=== PATIENT | female | born 1990 | race Caucasian/White ===

== ENCOUNTER 2017-10-07 06:00 | Inpatient (IN) ==
--- OUTSIDE RECORDS SUMMARY | 2017-10-07 06:19 | External Medical Summary | Continuity of Care Document ---
:1990 Author Organization [facility] Address [address] [place] [address] [phone] Phone Care Team Providers Name Role Phone Faudere DO, Crystal Unavailable Unavailable Allergies, Adverse Reactions, Alerts Substance Reaction Severity Status sulfamethoxazole Unknown Active trimethoprim Unknown Active Medications Medication Instructions Dosage Effective Dates Status Comments (start - stop) RANITIDINE HCL take 1 capsule by - Active (unknown strength) oral route every day at bedtime GAVISCON (unknown - Active strength) TUMS (unknown - Active strength) ferrous sulfate 325 mg take 1 tablet by oral 325 MG - Active (65 mg iron) tablet route every day ORAL TABLET - Active Tylenol Extra Strength take 2 tablet by oral 1000 MG - Active 500 mg tablet route every 6 hours as needed as needed polyethylene glycol take 1 packet by oral 17 G - Active 3350 17 gram oral route every day powder packet mixed with 8 oz. water, juice, soda, coffee or tea Problems Condition Effective Dates (start - stop) Clinical Status Encounter for suprvsn of normal - , third trimester 32 weeks gestation of - Encounter for suprvsn of normal - , first trimester 13 weeks gestation of - Encounter for suprvsn of normal - , third trimester 30 weeks gestation of - Encounter for suprvsn of normal - , third trimester 34 weeks gestation of - Partial Placenta Previa Nos Or W/out - Hemorrhage, Second Trimester Encounter for suprvsn of normal - , second trimester 25 weeks gestation of - Partial Placenta Previa Nos Or W/out - Hemorrhage, Third Trimester 30 weeks gestation of - Encounter for suprvsn of normal - , second trimester 21 weeks gestation of - Encounter for suprvsn of normal - , second trimester 21 weeks gestation of - Encounter for suprvsn of normal - , second trimester 17 weeks gestation of - Procedures Procedure Date 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 Tk SANTORO, , third 8 700 [address] [email or web address] weeks Medical 1522, gestation of [facility] Bobby Guajardo PA, 120, [id number], Rosa, [place], tel:[phone] [facility] , [place]. tel: [phone] Francia Rosa Encounter for Dec-2 Hailee In Womens suprvsn of normal 0-201 Prerna. Health MAUDE, , third 7 700 [address] [email or web address] weeks Medical 1522, gestation of [facility] Bobby Guajardo, 120, [id number], [facility] [place], tel: [phone] , [place]. tel: [phone] Francia Rosa Encounter for Dec-0 Hailee Referring In Womens suprvsn of normal 4-201 Prerna. Provider: Tk SANTORO, , third 7 700 Prerna [address] [email or web address] weeks Medical Hailee L, 1522, gestation of [address] Bobby Guajardo, 120, [place] [id number], [place] [address], [place], tel: [phone] [place] [address] , . [id number]. tel: tel: [phone] Francia Rosa Partial Placenta Dec-0 Hailee In Womens Ultrasound Previa Nos Or 4-201 Prerna. Health PA, W/out Hemorrhage, 7 700 PO Box Third [id number] Medical 1522, weeks gestation [facility], of Bobby Guajardo, 120, [id number], [place], [place], tel:[phone] , [place]. tel: [phone] [facility] [place] Nov-0 Hailee In Womens 3-201 Prerna. Health PA, 7 700 PO Box Medical 1522, [facility], Bobby Guajardo, 120, , [place], [place], tel:[phone] , [place]. tel: [phone] [facility] [place] Partial Placenta Nov-0 Hailee In Womens Previa Nos Or 2-201 Prerna. Health MAUDE, W/out Hemorrhage, 7 700 PO Box Second Medical 1522, TrimesterEncounte [facility], r for suprvsn of Bobby Guajardo, normal , 120, , second [place], [email or web address] weeks [place], tel:+ gestation [phone] , [place]. tel: [phone] Francia Rosa Encounter for Oct-0 Hailee In Womens suprvsn of normal 5-201 Prerna. Health PA, , second 7 700 [address] Box [email or web address] weeks Medical 1522, gestation of [facility] Bobby Guajardo, 120, , [place], [place], tel:[phone] , [place]. tel: [phone] Francia Rosa Encounter for Oct-0 Hailee In Womens Ultrasound suprvsn of normal 5-201 Prerna. Health PA, , second 7 700 [address] Box [email or web address] weeks Medical 1522, gestation of [facility] Bobby Guajardo, 120, , [place], [place], tel:[phone] , [place]. tel:[phone] Francia Rosa Encounter for Sep-0 Hailee In Womens suprvsn of normal 6-201 Prerna. Health PA, , second 7 700 [address] Box [email or web address] weeks Medical 1522, gestation of [facility], Bobby Guajardo, 120, [id number], [place], [place], tel:[phone] , [place]. tel: [phone] Francia Rosa Encounter for Hailee In Womens suprvsn of normal 7-201 Prerna. [facility], , first 7 700 [address] [email or web address] weeks Medical 1522, gestation of [facility], Bobby Guajardo, 120, [id number], [place], [place], tel:[phone] , [place]. tel: [phone] Family History Family Member Diagnosis Age At Onset Maternal Grandfather Diabetes No family history of Venous Thrombosis Father Hypertension Paternal Grandfather Stroke No family history of Pulmonary Embolism Sister Thyroid Disorder Immunizations Vaccine Date Status Comments Rhophylac completed Source: New Immunization Record Payers Payer name Insurance type Covered alliance party ID Authorization(s) [facility] CI [id number] [facility] CI [id number] Social History Type Description Quantity Date Captured Alcohol Use Details No Caffeine Use Details Unknown Tobacco Use Status Unknown Smoking Status Never smoker Vital Signs Date / Height Weight BMI Pulse Blood Temperature Respiratory Body Head BMI Time: Rate Pressure Rate Surface Circumference percentile Area 178.70 29.7 lbs 3 mm[Hg] 4:50 kg/m PM eter (2) Chief Complaint And Reason For Visit Unknown Chief Complaint And Reason For Visit Reason For Referral Reason For Referral Unknown Plan Of Care Date Type Action Status Appointment Nickie Gamino BOOKED Future Order: Radiology Order Ultrasound, OB Limited ([id number]) Ordered Future Order: Radiology Order Complete OB Ultrasound > 14 Ordered Weeks ([id number]) Date Type Problem Goal Intervention Status Start Date Unknown. History Of Present Illness Encounter Date Complaint History Of Present Illness This patient has no known history of present illness Functional Status Encounter Date Functional Assessment Cognitive Assessment Unknown Medications Administered Medication Instructions Dosage Effective Dates (start - stop) Status Comments Drug Treatment Unknown Instructions Date Instruction Additional Information HIV and other routine tests risk factors identified by history anticipated course of care nutrition and weight gain counseling, special diet toxoplasmosis precautions (cats / raw meat) sexual activity exercise indications for ultrasound influenza vaccine environmental / work hazards travel use of any medications (including supplements, vitamins, herbs, OTC drugs) domestic violence seat belt use childbirth classes / hospital facilities hospital registration genetic testing new ob handbook Zika virus assessment & precautions
--- OUTSIDE RECORDS SUMMARY | 2017-10-07 06:19 | External Medical Summary | Continuity of Care Document ---
:1990 Author Organization [facility] Address [address] [place] [address] [phone] Phone Care Team Providers Name Role Phone Faudere DO, Crystal Unavailable Unavailable Allergies, Adverse Reactions, Alerts Substance Reaction Severity Status No Known Drug Allergies Unknown Active Medications Medication Instructions Dosage Effective Dates Status Comments (start - stop) ORAL - Active TABLET Tylenol Extra take 2 tablet by oral 1000 MG - Active Strength 500 mg route every 6 hours tablet as needed as needed Problems Condition Effective Dates (start - stop) Clinical Status Encounter for suprvsn of normal - , first trimester 13 weeks gestation of - Procedures Procedure Date Initial 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 Infct antign, chlamydia trac, ampl Neisseria Gonorrhoeae, Amplification Urine Culture OB Panel With An HIV Venpnctr fngr/heel/ear stick routne Cult, bactr, ident isolate, urine Results Test Name Date and Time Measure Units Reference Range Abnormal Flag Comments Panel Description: OBSTETRIC PANEL WHITE BLOOD CELL 13.3 Thousand/uL 3.8-10.8 H COUNT 15:55:00 RED BLOOD CELL 3.83 Million/uL 3.80-5.10 N COUNT 15:55:00 HEMOGLOBIN 12.0 g/dL 11.7-15.5 N 15:55:00 HEMATOCRIT 36.1 % 35.0-45.0 N 15:55:00 MCV 94.3 fL 80.0-100.0 N 15:55:00 MCH 31.3 pg 27.0-33.0 N 15:55:00 MCHC 33.2 g/dL 32.0-36.0 N 15:55:00 RDW 12.4 % 11.0-15.0 N 15:55:00 PLATELET COUNT 270 Thousand/uL 140-400 N 15:55:00 MPV 11.3 fL 7.5-12.5 N 15:55:00 ABSOLUTE 67473 cells/uL 6797-9444 H NEUTROPHILS 15:55:00 ABSOLUTE 2421 cells/uL 850-3900 N LYMPHOCYTES 15:55:00 ABSOLUTE 625 cells/uL 200-950 N MONOCYTES 15:55:00 ABSOLUTE 120 cells/uL 15-500 N EOSINOPHILS 15:55:00 ABSOLUTE 40 cells/uL 0-200 N BASOPHILS 15:55:00 NEUTROPHILS 75.9 % N 15:55:00 LYMPHOCYTES 18.2 % N 15:55:00 MONOCYTES 4.7 % N 15:55:00 EOSINOPHILS 0.9 % N 15:55:00 BASOPHILS 0.3 % N 15:55:00 ANTIBODY SCREEN, NO ANTIBODIES N RBC W/REFL ID, 15:55:00 DETECTED Reference range TITER AND AG No antibodies detected This assay is a screening test for the detection of red blood cell antibodies. The test is not to be used for pretransfusion screening or for the medical management of an alloimmunized . ABO GROUP B 15:55:00 RH TYPE RH (D) 15:55:00 NEGATIVE RPR (DX) W/REFL NON-REACTIVE NON-REACTIV N TITER AND 15:55:00 E CONFIRMATORY TESTING HEPATITIS B NON-REACTIVE NON-REACTIV N SURFACE ANTIGEN 15:55:00 E RUBELLA ANTIBODY 1.12 index N Index (IGG) 15:55:00 Interpretation ----- <0.90 Not consistent with Immunity 0.90-0.99 Equivocal > or=1.00 Consistent with Immunity The presence of rubella IgG antibody suggests immunization or past or current infection withrubella virus.Test performed at [facility] [place] [address]Spczlbr r: PEDRO JONES DO,MPH Panel Description: HIV 1/2 ANTIGEN/ANTIBODY,FOURTH GENERATION W/RFL HIV NON-REACTIVE NON-REACTIVE N HIV-1 antigen and HIV-1/HIV- 2 antibodies were AG/AB, 15:55:00 notdetected. There is no laboratory evidence of 4TH GEN HIVinfection. PLEASE NOTE: This information has been disclosed toyou from records whose confidentiality may beprotected by state law. If your state requires suchprotection, then the state law prohibits you frommaking any further disclosure of the informationwithout the specific written consent of the personto whom it pertains, or as otherwise permitted by law.A general authorization for the release of medical orother information is NOT sufficient for this purpose. For additional information please refer tohttp://education.[employer]/faq/ZJO785(This link is being provided for informational/educational purposes only.) The performance of this assay has not been clinicallyvalidated in patients less than 2 years old. Test performed at [facility] [id number] [facility] [address]Eggyhyzw: PEDRO JONES DO,MPH Panel Description: Bacteria identified in Urine by Culture CULTURE, URINE, 15:50:00 SEE NOTE A CULTURE, URINE, ROUTINE ROUTINE MICRO NUMBER: [id number] TEST STATUS: FINAL SPECIMEN SOURCE: URINE SPECIMEN QUALITY: ADEQUATE RESULT: 10,000-50,000 CFU/mL of Streptococcus viridans group May represent colonizers from external and internal genitalia. No further testing (including susceptibility) will be performed. COMMENT: Additional organism(s) less than 10,000 CFU/mL isolated. These organisms, commonly found on external and internal genitalia, are considered colonizers. No further testing performed.REPORT COMMENT:RTest performed at [facility] [id number] [facility] [place] [address]Cofujtzy: PEDRO JONES DO,MPH Panel Description: CHLAMYDIA/N. GONORRHOEAE RNA, TMA CHLAMYDIA NOT DETECTED NOT DETECTED N TRACHOMATIS RNA, 15:30:00 TMA NEISSERIA NOT DETECTED NOT DETECTED N GONORRHOEAE RNA, 15:30:00 TMA [id number] SEE NOTE This test was 15:30:00 performed using the APTIMA COMBO2 Assay([employer] The analytical performance characteristics of this assay, when used to test SurePath specimens havebeen determined by [employer]. Test performed at [facility] [id number] [place] [address]Ahvzvlsk: PEDRO JONES DO,MPH Panel Description: Pap Smear With HPV Reflex If ASCUS Document Advance Directives Directive Yes / No Effective Date File Name Unknown Encounters Encounter Practice Location Reason(s) Diagnoses Date Provider Care Team Description For Visit Members [facility] Encounter [facility] [place] Pre[place]. [place], PO Box of normal 700 1522, , [facility] , [id number], [place] [email or web address] Bobby 120, tel:[phone] weeks Rosa, 6790 gestation of [place], [id number], [place]. tel:[phone] Family History Family Member Diagnosis Age At Onset Maternal Grandfather Diabetes No family history of Venous Thrombosis Father Hypertension Paternal Grandfather Stroke No family history of Pulmonary Embolism Sister Thyroid Disorder Immunizations Vaccine Date Status Comments Unknown Payers Payer name Insurance type Covered constitution party ID Authorization(s) [facility] [id number] Social History Type Description Quantity Date Captured Alcohol Use Details No Caffeine Use Details combo 1 cup per day Tobacco Use Status Never smoked tobacco Smoking Status Never smoker Non-Smoking Tobacco Use : No Details Available : No Details Available Details Vital Signs Date / Height Weight BMI Pulse Blood Temperature Respiratory Body Head BMI Time: Rate Pressure Rate Surface Circumference percentile Area 151.10 25.1 105/69 lbs 4 mm[Hg] 3:35 kg/m PM eter (2) 151.10 25.1 lbs 4 3:12 kg/m PM eter (2) 151.10 25.1 lbs 4 mm[Hg] 3:13 kg/m PM eter (2) Chief Complaint And Reason For Visit Unknown Chief Complaint And Reason For Visit Reason For Referral Reason For Referral Unknown Plan Of Care Date Type Action Status Appointment Stevenson, Nickie BOOKED Date Type Problem Goal Intervention Status Start [...]
--- OUTSIDE RECORDS SUMMARY | 2017-10-07 06:19 | External Medical Summary | Continuity of Care Document ---
:1990 Author Organization [facility] Address [address] [place] [address] [phone] Phone Care Team Providers Name Role Phone Ekaterina RUIZ, Crystal Unavailable Unavailable Allergies, Adverse Reactions, Alerts [...] third trimester 34 weeks gestation of - Encounter for suprvsn of normal - , first trimester 13 weeks gestation of - Encounter for suprvsn of normal - , third trimester 30 weeks gestation of - Partial Placenta Previa [...] second trimester 17 weeks gestation of - Encounter for suprvsn of normal - , third trimester 36 weeks gestation of - Encounter for suprvsn of normal - , third trimester 32 weeks gestation of - Procedures Procedure Date OB Visit No Charge Results Test Name Date and Time Measure Units Reference Range Abnormal Flag Comments Unknown Advance Directives Directive Yes / No Effective Date File Name Unknown Encounters Encounter Practice Location Reason(s) Diagnoses Date Provider Care Team Description For Visit Members Francia Rosa Encounter for Sep- Hailee Referring In Womens suprvsn of normal 7-201 Prerna. Provider: Health PA, , third 8 700 Prerna [address] [email or web address] weeks Medical Hailee L, 1522, gestation of [address] Bobby Guajardo [place], 120, [place] , [place] [address], [place], tel:[phone] [place], [address] , . [id number]. tel: tel: [phone] Francia Rosa Encounter for Derik-0 Hailee In Womens suprvsn of normal 3-201 Prerna. Health PA, , third 8 700 [address] Box [email or web address] weeks Medical 1522, gestation of [facility] Bobby Guajardo, 120, [id number], [place], tel:[phone] , . tel: [phone] Francia Rosa Encounter for Dec-2 Hailee In Womens suprvsn of normal 0-201 Prerna. Health PA, , third 7 700 PO Box [email or web address] weeks Medical 1522, gestation of [facility] Bobby Guajardo, 120, , [place], [place], tel:[phone] , [place]. tel: [phone] Associates [place] Encounter for Dec-0 Hailee Referring In Womens suprvsn of normal 4-201 Prerna. Provider: Health MAUDE, , third 7 700 Prerna PO Box [email or web address] weeks Medical Hailee L, 1522, gestation of [address], Bobby Guajardo [place], 120, [place] , [place] [facility] 120, [place], [place], tel:[phone] [place], , [place]. [id number]. tel: tel: [phone] [facility] [place] Partial Placenta Dec-0 Hailee In Womens Ultrasound Previa Nos Or 4-201 Prerna. Health MAUDE, W/out Hemorrhage, 7 700 PO Box Third [id number] Medical 1522, weeks gestation [facility], Bobby Guajardo, 120, , [place], tel:[phone] , [place]. tel: [phone] Associates [place] Nov-0 Hailee In Womens 3-201 Prerna. Health MAUDE, 7 700 PO Box Medical 1522, [facility], Bobby Guajardo, 120, , [place], [place], tel:[phone] , [place]. tel: [phone] [facility] [place] Partial Placenta Nov-0 Hailee In Womens Previa Nos Or 2-201 Prerna. Health MAUDE, W/out Hemorrhage, 7 700 PO Box Second Medical 1522, TrimesterEncounte [facility], for suprvsn of Bobby Guajardo, normal , 120, , janeth Rosa [email or web address] weeks [place], tel: gestation of [phone] , [place]. tel: [phone] Associates [place] Encounter for Oct-0 Hailee In Womens suprvsn of normal 5-201 Prerna. Health MAUDE, , second 7 700 PO Box [email or web address] weeks Medical 1522, gestation of [facility], Bobby Guajardo, 120, , [place], tel:[phone] , [place]. tel: [phone] Francia Rosa Encounter for Oct-0 Hailee In Womens Ultrasound suprvsn of normal 5-201 Prerna. Health PA, , second 7 700 PO Box [email or web address] weeks Medical 1522, gestation of [facility], Bobby Guajardo, 120, [id number], [facility] [place], tel:[phone] , [place]. tel: [phone] Francia Rosa Encounter for Sep-0 Hailee In Womens suprvsn of normal 6-201 Prerna. Health PA, , second 7 700 PO Box [email or web address] weeks Medical 1522, gestation of [facility], Bobby Guajardo, 120, [id number], [facility] [place], tel:[phone] , [place]. tel: [phone] Francia Rosa Encounter for Aug-0 Hailee In Womens suprvsn of normal 7-201 Prerna. Health PA, , first 7 700 PO Box weeks Medical 1522, gestation of [facility], Bobby Guajardo, 120, [id number], [facility] [place], tel:[phone] , [place]. tel: [phone] Family History Family Member Diagnosis Age At Onset Maternal Grandfather Diabetes No family history of Venous Thrombosis Father Hypertension Paternal Grandfather Stroke No family history of Pulmonary Embolism Sister Thyroid Disorder Immunizations Vaccine Date Status Comments Tdap completed Source: New Immunization Record Rhophylac completed Source: New Immunization Record Payers Payer name Insurance type Covered libertarian ID Authorization(s) [facility] CI [id number] [facility] CI [id number] [facility] CI [id number] Social History Type Description Quantity Date Captured Alcohol Use Details No Caffeine Use Details Unknown Tobacco Use Status Unknown Smoking Status Never smoker Vital Signs Date / Height Weight BMI Pulse Blood Temperature Respiratory Body Head BMI Time: Rate Pressure Rate Surface Circumference percentile Area Unknown Chief Complaint And Reason For Visit Unknown Chief Complaint And Reason For Visit Reason For Referral Reason For Referral Unknown Plan Of Care Date Type Action Status Appointment Nickie Gamino BOOKED Future Order: Radiology Order Ultrasound, OB Limited ([id number]) Ordered Future Order: Radiology Order Complete OB Ultrasound > 14 Ordered Weeks ([id number]) Date Type Problem Goal Intervention Status Start [...]
--- OUTSIDE RECORDS SUMMARY | 2017-10-07 06:19 | External Medical Summary | Continuity of Care Document ---
:1990 Author Organization [facility] Address [address] [place] [phone] Phone Care Team Providers Name Role Phone Faudere DO, Crystal Unavailable Unavailable Allergies, Adverse Reactions, Alerts Substance Reaction Severity Status No Known Drug Allergies Unknown Active sulfamethoxazole Unknown Active trimethoprim Unknown Active Medications Medication Instructions Dosage Effective Dates Status Comments (start - stop) ferrous sulfate 325 mg take 1 tablet by oral 325 MG - Active (65 mg iron) tablet route every day polyethylene glycol take 1 packet by oral 17 G - Active 3350 17 gram oral route every day powder packet mixed with 8 oz. water, juice, soda, coffee or tea ORAL TABLET - Active Tylenol Extra Strength take 2 tablet by oral 1000 MG - Active 500 mg tablet route every 6 hours as needed as needed Problems Condition Effective Dates (start - stop) Clinical Status Encounter for suprvsn of normal - , first trimester 13 weeks gestation of - Partial Placenta Previa Nos Or W/out - Hemorrhage, Second Trimester Encounter for suprvsn of normal - , second trimester 25 weeks gestation of - Encounter for suprvsn of normal - , second trimester 21 weeks gestation of - Encounter for suprvsn of normal - , second trimester 21 weeks gestation of - Encounter for suprvsn of normal - , second trimester 17 weeks gestation of - Procedures Procedure Date Unknown Results Test Name Date and Time Measure Units Reference Range Abnormal Flag Comments Unknown Advance Directives Directive Yes / No Effective Date File Name Unknown Encounters Encounter Practice Location Reason(s) Diagnoses Date Provider Care Description For Visit Team Members [facility] Nov-0 [facility] In W[facility]ens 3-201 [facility]. [facility] [place], 7 700 [address], [employer] [place], Bobby Guajardo, 120, [id number], [place], tel:[phone] , [place]. tel: [phone] [facility] Partial Placenta Nov-0 [facility] In Womens Previa Nos Or W/out 2-201 Prerna. Health MAUDE, Hemorrhage, Second 7 700 PO [address] TrimesterEncounter Medical 1522, for suprvsn of [facility], normal , Bobby Guajardo, second [email or web address] 120, , weeks gestation of [facility] [place], tel:[phone] , [place]. tel: [phone] Associates [facility] Encounter for Oct-0 [facility] In Womens suprvsn of normal 5-201 [facility]. [facility] [place], , second 7 700 [address] [email or web address] weeks Medical 1522, gestation of [facility], Bobby Guajardo, 120, , [place], [place], tel:[phone] , [place]. tel: [phone] Francia [place] Encounter for Oct-0 [facility] In Womens Ultrasound suprvsn of normal 5-201 Prerna. Health MAUDE, , second 7 700 [address] [email or web address] weeks Medical 1522, gestation of [facility], Bobby Guajardo, 120, , [place], tel:[phone] , [place]. tel: [phone] Francia [place] Encounter for Sep-0 [facility] In Womens suprvsn of normal 6-201 [facility]. [facility] [place], , second 7 700 PO Box weeks Medical 1522, gestation of [facility], Bobby Guajardo, 120, [id number], [place], tel:[phone] , [place]. tel: [phone] Francia [place] Encounter for Aug-0 [facility] In Womens suprvsn of normal 7-201 [facility]. [facility] [place], , first 7 700 [address] [email or web address] weeks Medical 1522, gestation of [facility], Bobby Guajardo [place], 120, [id number], [place], [place], tel:[phone] , [place]. tel: [phone] Family History Family Member Diagnosis Age At Onset Maternal Grandfather Diabetes No family history of Venous Thrombosis Father Hypertension Paternal Grandfather Stroke No family history of Pulmonary Embolism Sister Thyroid Disorder Immunizations Vaccine Date Status Comments Unknown Payers Payer name Insurance type Covered republican ID Authorization(s) [facility] Aid CI [id number] Social History Type Description Quantity Date Captured Unknown Vital Signs Date / Height Weight BMI Pulse Blood Temperature Respiratory Body Head BMI Time: Rate Pressure Rate Surface Circumference percentile Area Unknown Chief Complaint And Reason For Visit Unknown Chief Complaint And Reason For Visit Reason For Referral Reason For Referral Unknown Plan Of Care Date Type Action Status Appointment Nickie Gamino BOOKED Appointment Nickie Gamino BOOKED Future Order: Radiology Order Complete OB Ultrasound > 14 Ordered Weeks ([id number]) Date Type Problem Goal Intervention Status Start [...]
--- OUTSIDE RECORDS SUMMARY | 2017-10-07 06:19 | External Medical Summary | Continuity of Care Document ---
:1991 Author Organization [facility] Address [address] [place], [place] [phone] Phone Care Team Providers Name Role Phone [...] weeks gestation of - Procedures Procedure Date Ultrasound exam of preg uterus, complete Results Test Name Date and Time Measure Units Reference Range Abnormal Flag Comments Unknown Advance Directives Directive Yes / No Effective Date File Name Unknown Encounters Encounter Practice Location Reason(s) Diagnoses Date Provider Care Team Description For Visit Members Francia [place] Encounter [facility] In [facility] for suprvsn -2016 Health [place], of normal 700 [address], , Medical [place], [place], [facility] [address] [id number], [email or web address] Bobby 120, [place] weeks [place], tel:[phone] [place], [phone] of [id number], [place]. tel:[phone] Francia [place] Encounter [facility] Ultrasound for [facility] [place], of normal 700 [address], , [place], [place], [facility] , [id number], [email or web address] Bobby 120, [place] weeks [place], tel:[phone] [place], [phone] of [id number], [place]. tel:[phone] Francia [place] Encounter [facility] for [facility]rna. [facility] [place], of normal 700 [address], , [place], [place], [facility] , [id number], [email or web address] Bobby 120, [place] weeks [place], tel:[phone] [place], [address] of [id number], [place]. tel:[phone] Francia [place] Encounter [facility] for [facility]rna. [facility] [place], of normal 700 [address], , [facility] [address] [id number], [email or web address] Bobby 120, [place] weeks [place], tel:[phone] [place], [phone] of [id number], [place]. tel:[phone] Family History Family Member Diagnosis Age At Onset Maternal Grandfather Diabetes No family history of Venous Thrombosis Father Hypertension Paternal Grandfather Stroke No family history of Pulmonary Embolism Sister Thyroid Disorder Immunizations Vaccine Date Status Comments Unknown Payers Payer name Insurance type Covered republican ID Authorization(s) [facility] Aid CI [id number] Social History Type Description Quantity Date Captured [...] Complete OB Ultrasound > 14 Ordered Weeks ([id number]) Date Type Problem Goal Intervention Status Start [...]
--- OUTSIDE RECORDS SUMMARY | 2017-10-07 06:19 | External Medical Summary | Continuity of Care Document ---
:1991 Author Organization [facility] Address [address] [place], [place] [phone] Phone Care Team Providers Name Role Phone [...] Description For Visit Members Francia [place] Encounter [facility] for Prerna. MAUDE, PO [address] of normal 700 1522, , Medical [place], [place], [facility] [address] [id number], [place] [email or web address] Bobby 120, tel:[phone] weeks Moe, 6790 gestation of [place], [id number], [place]. tel:[phone] Francia [place] Encounter [facility] for [facility] Prerna. MAUDE, [address] of normal 700 1522, , [place], [place], [facility] [address] [id number], [place] [email or web address] Bobby 120, tel:[phone] weeks [place], 6790 gestation of [place], [id number], [place]. tel:[phone] Family History Family Member Diagnosis Age At Onset Maternal Grandfather Diabetes No family history of Venous Thrombosis Father Hypertension Paternal Grandfather Stroke No family history of Pulmonary Embolism Sister Thyroid Disorder Immunizations Vaccine Date Status Comments Unknown Payers Payer name Insurance type Covered constitution party ID Authorization(s) [facility] Aid [id number] Social History Type Description Quantity Date Captured [...] Nickie Gamino BOOKED Appointment Nickie Gamino BOOKED Date Type Problem Goal Intervention Status [...]
--- OUTSIDE RECORDS SUMMARY | 2017-10-07 06:19 | External Medical Summary | Continuity of Care Document ---
:1990 Author Organization [facility] Address [address] [place] [phone] Phone Care Team Providers Name Role Phone Faudere DO, Crystal Unavailable Unavailable Allergies, Adverse Reactions, Alerts Substance Reaction Severity Status sulfamethoxazole Unknown Active trimethoprim Unknown Active Medications Medication Instructions Dosage Effective Dates Status Comments (start - stop) GAVISCON (unknown - Active strength) TUMS (unknown [...] Procedures Procedure Date OB Visit No Charge Injection Administration Rhophylac 100 Units Antibody Screen, RBC Venpnctr fngr/heel/ear stick routne Results Test Name Date and Time Measure Units Reference Range Abnormal Flag Comments Panel Description: ANTIBODY SCREEN, RBC W/REFL ID, TITER AND AG ANTIBODY NO ANTIBODIES N Reference SCREEN, RBC 13:33:00 DETECTED range No W/REFL ID, antibodies detected This TITER AND AG assay is a screening test for the detection of red blood cell antibodies. The test is not to be used for pretransfusion screening or for the medical management of an alloimmunized . REPORT COMMENT:FASTING:NOTest performed at [facility] [id number] [place] [address]Cqvdghun: PEDRO JONES DO,MPH Advance Directives Directive Yes / No Effective Date File Name Unknown Encounters Encounter Practice Location Reason(s) Diagnoses Date Provider Care Team Description For Visit Members Francia [place] Encounter for Dec-2 [facility] In Womens suprvsn of normal 0-201 Prerna. Health MAUDE, , third 7 700 [address] [email or web address] weeks Medical 1522, gestation of [facility] Bobby Guajardo, 120, [id number], [place], tel: [phone] , [place]. tel: [phone] Francia [place] Encounter for Dec-0 Hailee Referring In Womens suprvsn of normal 4-201 Prerna. Provider: Health [place], , third 7 700 Prerna [address] [email or web address] weeks Medical Hailee L, 1522, gestation of [address], [facility] Bobby Guajardo [place], 120, [place] [id number], [place] [address], Moe [place], tel: [phone] [facility] , [place]. . tel: tel: [phone] Associates [facility] Partial Placenta Dec-0 [facility] In Womens Ultrasound Previa Nos Or 4-201 [facility]rna. [facility] [place], W/out Hemorrhage, 7 700 PO [address] Third [email or web address] Medical 1522, weeks gestation [facility], of Bobby Guajardo, 120, [id number], [place], [place], tel:[phone] , [place]. tel: [phone] [facility] Nov-0 [facility] In Womens 3-201 [facility]. [facility] [place], 7 700 [address] Medical [address], [facility], Bobby Guajardo, 120, , [place], [place], tel:[phone] , [place]. tel: [phone] [facility] Partial Placenta Nov-0 [facility] In Womens Previa Nos Or 2-201 Prerna. Health MAUDE, W/out Hemorrhage, 7 700 PO Box Second Medical 1522, Trimester[facility]ounte [facility], r for suprvsn of Bobby Guajardo, normal , 120, , second [place], [email or web address] weeks [place], tel: gestation of , [place]. tel: [phone] Associates [facility] Encounter for Oct-0 [facility] In Womens suprvsn of normal 5-201 Prerna. [facility] [place], , second 7 700 PO Box [email or web address] weeks Medical 1522, gestation of [facility], Bobby Guajardo, 120, , [place], [place], tel:[phone] , [place]. tel: [phone] Associates [facility] Encounter for Oct-0 [facility] In Womens Ultrasound suprvsn of normal 5-201 Prerna. [facility] [place], , second 7 700 PO Box [email or web address] weeks Medical 1522, gestation of [facility], Bobby Guajardo, 120, [id number], [place], [place], tel:[phone] , [place]. tel: [phone] Associates [facility] Encounter for Sep-0 [facility] In Womens suprvsn of normal 6-201 Prerna. [facility] [place], , second 7 700 PO Box [email or web address] weeks Medical 1522, gestation of [facility], Bobby Guajardo, 120, [id number], [facility] [place], tel:[phone] , [place]. tel: [phone] Francia [place] Encounter for Hailee In Women suprvsn of normal 7-201 Prerna. [facility] [place], , first 7 700 [address] Box [email or web address] weeks Medical 1522, gestation of [facility], Bobby Guajardo, 120, [id number], [facility] [place], tel:[phone] , [place]. tel: [phone] Family History Family Member Diagnosis Age At Onset Maternal Grandfather Diabetes No family history of Venous Thrombosis Father Hypertension Paternal Grandfather Stroke No family history of Pulmonary Embolism Sister Thyroid Disorder Immunizations Vaccine Date Status Comments Rhophylac completed Source: New Immunization Record Payers Payer name Insurance type Covered republican ID Authorization(s) [facility] Aid CI [id number] [facility] Aid CI [id number] Social History Type Description Quantity Date Captured [...] Future Order: Radiology Order Ultrasound, OB Limited ([id number]) Ordered Future Order: Radiology Order Complete OB Ultrasound > 14 Ordered Weeks ([id number]) Date Type Problem Goal Intervention Status Start [...]
--- OUTSIDE RECORDS SUMMARY | 2017-10-07 06:19 | External Medical Summary | Continuity of Care Document ---
:1990 Author Organization [facility] Address [address] [place] [phone] Phone Care Team Providers Name Role Phone [...] Effective Dates (start - stop) Clinical Status Partial Placenta Previa Nos Or W/out - [...] Procedures Procedure Date OB Visit No Charge Hemoglobin count, colorimetric Hematocrit blood count Glucose test Venpnctr fngr/heel/ear stick routne Results Test Name Date and Time Measure Units Reference Range Abnormal Flag Comments Panel Description: Glucose [Mass/volume] in Serum or Plasma --1 hour post 50 g glucose PO GLUCOSE, 123 mg/dL <140 N Test performed at [facility] S[facility]EN 14:04:00 DIAGNOSTICS [id number] (50G)-[address] [place] [address]Ndslusup: PEDRO JONES DO,MPH Panel Description: HEMOGLOBIN + HEMATOCRIT HEMOGLOBIN 14:04:00 10.6 g/dL 11.7-15.5 L HEMATOCRIT 14:04:00 31.4 % 35.0-45.0 L REPORT COMMENT:FASTING :NOTest performed at [facility] [id number] [place] [address]Wtcyqrhl: PEDRO JONES DO,MPH Advance Directives Directive Yes / No Effective Date File Name Unknown Encounters Encounter Practice Location Reason(s) Diagnoses Date Provider Care Description For Visit Team Members Associates [facility] Nov-0 Ha[facility] In Womens 3-201 Prerna. Health MAUDE, 7 700 [address] Medical [address], [place], Bobby Guajardo, 120, , [facility] [place], tel:[phone] , [place]. tel: [phone] Francia [place] Partial Placenta Nov-0 Hailee In Womens Previa Nos Or W/out 2-201 Prerna. Health MAUDE, Hemorrhage, Second 7 700 PO Box TrimesterEncounter Medical 1522, for suprvsn of [facility], normal , Bobby Guajardo, second [email or web address] 120, , weeks gestation of [facility] [place], tel:[phone] , [place]. tel: [phone] Francia [place] Encounter for Oct-0 Hailee In Womens suprvsn of normal 5-201 Prerna. Health MAUDE, , second 7 700 PO Box [email or web address] weeks Medical 1522, gestation of [facility], Bobby Guajardo, 120, , [facility] [place], tel:+ [phone] , [place]. tel: [phone] Francia [place] Encounter for Oct-0 [facility]ilee In Womens Ultrasound suprvsn of normal 5-201 Prerna. [facility] [place], , second 7 700 PO Box [email or web address] weeks Medical 1522, gestation of [facility], Bobby Guajardo, 120, [id number], [place], tel:[phone] , [place]. tel: [phone] Francia [place] Encounter for Sep-0 Hailee In Womens suprvsn of normal 6-201 Prerna. Health [facility], , second 7 700 PO Box weeks Medical 1522, gestation of [facility], Bobby Guajardo, 120, [id number], [place], tel:[phone] , [place]. tel: [phone] Francia [place] Encounter for Aug-0 Hailee In Womens suprvsn of normal 7-201 Prerna. Health [facility], , first 7 700 [address] [email or web address] weeks Medical 1522, gestation of [facility], Bobby Guajardo, 120, [id number], [place], [place], tel:[phone] , [place]. tel: [phone] Family History Family Member Diagnosis Age At Onset Maternal Grandfather Diabetes No family history of Venous Thrombosis Father Hypertension Paternal Grandfather Stroke No family history of Pulmonary Embolism Sister Thyroid Disorder Immunizations Vaccine Date Status Comments Unknown Payers Payer name Insurance type Covered republican ID Authorization(s) [facility] Aid CI [id number] Social History Type Description Quantity Date Captured Alcohol Use Details No Caffeine Use Details Unknown Tobacco Use Status Unknown Smoking Status Never smoker Vital Signs Date / Height Weight BMI Pulse Blood Temperature Respiratory Body Head BMI Time: Rate Pressure Rate Surface Circumference percentile Area 168.20 27.9 lbs 9 mm[Hg] 1:08 kg/m PM eter (2) Chief Complaint And Reason For Visit Unknown Chief Complaint And Reason For Visit Reason For Referral Reason For Referral Unknown Plan Of Care Date Type Action Status Appointment Nickie Gamino BOOKED Appointment Nickie Gamino BOOKED Future Order: Radiology Order Complete OB Ultrasound > 14 Ordered Weeks ([id number]) Date Type Problem Goal Intervention Status Start [...]
--- OUTSIDE RECORDS SUMMARY | 2017-10-07 06:19 | External Medical Summary | Continuity of Care Document ---
:1990 Author Organization Trisha Rothman [facility] Care Team Providers Name Role Phone JOHN TOBAR DO Unavailable Unavailable Insurance Providers Payer Name Policy Number Subscriber Name Relationship [employer] [id number] Hiram Fernandez Self / Same As Patient Advance Directives Directive Response Recorded Date/Time Patient Resuscitation Status Full Code 04/02/15 12:24am Chief Complaint and Reason for Visit Reason for Visit Elective induction of labor planned Vaginal delivery Problems Active Problems Medical Problem Onset Date Status Elective induction of labor planned Unknown Acute Vaginal delivery Unknown Acute Medications Current Home Medications Medication Dose Units Route Directions Days/Qty Instructions Start Date Vitamin 1 X Oral Daily as needed 04/01/15 for . Ibuprofen 800 Mg 800 Mg Oral Every 8 Hours Prn 30 04/04/15 as needed for Cramps [Acetaminophen/Cod 1-2 Ea Oral Every 4 Hours as 20 04/04/15 eine] 1 Ea needed for Perineal Or Severe Pain Social History Social History Problem Response Recorded Date/Time Smoking Status Never smoker 03/31/2015 7:19pm Query Response Start Date Stop Date Smoking Status Never smoker Hospital Discharge Instructions Discharge Instructions Provider Instructions Dismiss Date: Apr 04, 2015 Dismiss: Home Diet: As Tolerated Activity: As Tolerated Physician Follow-up Appt #1: Dr Tobar [phone] F/U Appt: in 4-6 weeks Nursing Instructions Follow up Appointment #1 Physician Follow-up Appointment: Dr Tobar Scheduled Date: 04/08/15 Scheduled Time: 9:30am Plan of Care Discharge Date 04/04/15 3:00pm Disposition 01 HOME, SELF-CARE Instructions/Education Provided OBG Prescriptions See Medication Section Care Plan and Goals See Discharge Instructions Section Functional Status Query Response Date Recorded Toileting Ability/Staff Support Independ/No setup help April 04, 2015 1:47pm Oral Care Ability/Staff Support Independ/No setup help April 04, 2015 1:47pm Upper Body Dressing Ability/Staff Independ/No setup help April 04, 2015 1: 47pm Support Lower Body Dressing Ability/Staff Independ/No setup help April 04, 2015 1: 47pm Support Allergies, Adverse Reactions, Alerts No known allergies. Immunizations Name Given Type Pneumonia Vaccine Received No Historical Rho(D)-IG IM 04/02/15 Administered MMR 04/04/15 Administered Tdap 04/03/15 Administered Rho(D)-IG IM 04/03/15 Administered Rho(D)-IG IM 04/02/15 Administered MMR 04/04/15 Administered Tdap 04/03/15 Administered Rho(D)-IG IM 04/03/15 Administered Vital Signs Acute Vital Signs Vital Response Date/Time Blood Pressure 129/78 mm Hg 04/04/2015 1:47pm Blood Pressure Mean 90 mm Hg 04/02/2015 2:30am Blood Pressure Mean 95 mm Hg 04/04/2015 1:47pm Temperature (Fahrenheit) 98.4 degrees F (96.0 - 99.9) 04/04/2015 1:47pm Temperature (Calculated Celsius) 36.68620 degrees C 04/04/2015 1:47pm Temperature Source Oral 04/04/2015 1:47pm Pulse Pulse Rate (adult) 90 bpm (60 - 100) 04/04/2015 1:47pm Pulse Rate (adult) 91 bpm (60 - 100) 04/02/2015 2:30am Respiratory Rate 16 breaths per minute (10 - 20) 04/04/2015 1:47pm Height (Feet) 5 ft 03/31/2015 7:20pm Height (Inches) 6.0 in. 03/31/2015 7:20pm Weight (Pounds) 219.6 lbs 03/31/2015 7:20pm Height 5 ft 6 in Weight 219 lb Body Mass Index 35.4 kg/m^2 Results Pending Laboratory Results Test Name Collection Date/Time Procedures No known history of procedures. Encounters Encounter Location Arrival/Admit Date Discharge/Depart Date Attending Provider Discharged Trisha Rothman 04/01/15 10:50pm 08/03/15 3:00pm Vicky TOBAR Mem. [facility] Registered Trisha Rothman 03/28/15 11:27am LAITHUDERE, Referred Mem. [facility] Registered Trisha Rothman 01/19/15 9:52am DOMINGUEZ, Referred Mem. [facility] Registered Trisha Rothman 11/10/14 9:01am DOMINGUEZ, Referred Mem. [facility] DO Recent Diagnosis Elective induction of labor planned Vaginal delivery
--- OUTSIDE RECORDS SUMMARY | 2017-10-07 06:19 | External Medical Summary | Continuity of Care Document ---
:1990 Author Organization [facility] Address [address] [place] [phone] Phone Care Team Providers Name Role Phone [...] weeks gestation of - Procedures Procedure Date Ultrasnd exam, preg uterus, limited Results Test Name Date and Time Measure Units Reference Range Abnormal Flag Comments Unknown Advance Directives Directive Yes / No Effective Date File Name Unknown Encounters Encounter Practice Location Reason(s) Diagnoses Date Provider Care Team Description For Visit Members Francia [place] Encounter for Dec-2 Hailee In Womens suprvsn of normal 0-201 Prerna. Tk SANTORO, , third 7 700 [address] [email or web address] weeks Medical 1522, gestation of [facility] Bobby Guajardo, 120, [id number], [place], [place], tel:[phone] , [place]. tel: [phone] Francia [place] Encounter for Dec-0 Hailee Referring In Womens suprvsn of normal 4-201 Prerna. Provider: Tk SANTORO, , third 7 700 Prerna [address] [email or web address] weeks Medical Hailee L, 1522, gestation of [address] [facility] [place], 120, [place] , [place] [id number], [place], [place], tel: [phone] [place], , [place]. [id number]. tel: tel: [phone] Francia [place] Partial Placenta Dec-0 Hailee In Womens Ultrasound Previa Nos Or 4-201 Prerna. Tk SANTORO, W/out Hemorrhage, 7 700 [address] Third [email or web address] Medical 1522, weeks gestation [facility], of Bobby Guajardo, 120, [id number], [place], [place], tel:[phone] , [place]. tel: [phone] Francia [place] Nov-0 Hailee In Womens 3-201 Prerna. Tk SANTORO, 7 700 PO [address] Medical 1522, [place] [address] [place], 120, [id number], [place], [place], tel:[phone] , [place]. tel:[phone] Associates [place] Partial Placenta Nov-0 Hailee In Womens Previa Nos Or 2-201 Prerna. [facility] [place], W/out Hemorrhage, 7 700 PO Box Second Medical 1522, [facility], r for suprvsn of Bobby Guajardo, normal , 120, [id number], second [place], [email or web address] weeks [place], tel:[phone] gestation of [phone] , [place]. tel:[phone] [facility] [place] Encounter for Oct-0 Hailee In Womens suprvsn of normal 5-201 Prerna. Health [place], , second 7 700 [address] [email or web address] weeks Medical 1522, gestation of [facility], Bobby Guajardo, 120, [id number], [place], [place], tel:[phone] , [place]. tel: [phone] [facility] [place] Encounter for Oct-0 Hailee In Womens Ultrasound suprvsn of normal 5-201 Prerna. Health [place], , second 7 700 [address] [email or web address] weeks Medical 1522, gestation of [facility], Bobby Guajardo, 120, [id number], [place], [place], tel:[phone] , [place]. tel:[phone] [facility] [place] Encounter for Sep-0 Hailee In Womens suprvsn of normal 6-201 Prerna. Health [place], , second 7 700 [address] [email or web address] weeks Medical 1522, gestation of [facility], Bobby Guajardo, 120, [id number], [place], [place], tel:[phone] , [place]. tel:[phone] [facility] [place] Encounter for Aug-0 Hailee In Womens suprvsn of normal 7-201 Prerna. [facility] [place], , first 7 700 [address] [email or web address] weeks Medical 1522, gestation of [facility], Bobby Guajardo, 120, [id number], [place], tel:[phone] , [place]. tel:[phone] Family History Family Member Diagnosis Age At Onset Maternal Grandfather Diabetes No family history of Venous Thrombosis Father Hypertension Paternal Grandfather Stroke No family history of Pulmonary Embolism Sister Thyroid Disorder Immunizations Vaccine Date Status Comments Rhophylac completed Source: New Immunization Record Payers Payer name Insurance type Covered democrat ID Authorization(s) [facility] CI [id number] [facility] CI [id number] Social History Type Description Quantity Date Captured [...] Future Order: Radiology Order Ultrasound, OB Limited ([id number]) Ordered Future Order: Radiology Order Complete OB Ultrasound > 14 Ordered Weeks ([id number]) Date Type Problem Goal Intervention Status Start [...]
--- OUTSIDE RECORDS SUMMARY | 2017-10-07 06:19 | External Medical Summary | Continuity of Care Document ---
:1990 Author Organization [facility] Address [address] [place], [place] [phone] Phone Care Team Providers Name Role Phone Faudere DO, Crystal Unavailable Unavailable Allergies, Adverse Reactions, Alerts Substance Reaction Severity Status sulfamethoxazole Unknown Active trimethoprim Unknown Active No Known Drug Allergies Unknown Active Medications [...] Care Team Description For Visit Members [facility] [place] Encounter Hailee In [facility] for suprvsn -2016 Prerna. [facility] [place], of normal 700 [address], , Medical [place], [place], [facility] [address] [id number], [email or web address] Bobby 120, [place] weeks [place], tel:[phone] [place], [address] of [id number], [place]. tel:[phone] Francia [place] Encounter Hailee In Womens Ultrasound for Prerna. [facility] [place], of normal 700 [address], , [place], [place], [facility] [address] [id number], [email or web address] Bobby 120, [place] weeks [place], tel:[phone] [place], [address] of [id number], [place]. tel:[phone] Francia [place] Encounter Hailee In Womens for Prerna. [facility] [place], of normal 700 [address], , [place], [place], [facility] [address] [id number], [email or web address] Bobby 120, [place] weeks [place], tel:[phone] [place], [address] of [id number], [place]. tel:[phone] Francia [place] Encounter Hailee In Womens for Prerna. [facility] [place], of normal 700 [address], , [facility] [address] [id number], [email or web address] Bobby 120, [place] weeks [place], tel:[phone] [place], [address] of [id number], [place]. tel:[phone] Family History Family Member Diagnosis Age At Onset Maternal Grandfather Diabetes No family history of Venous Thrombosis Father Hypertension Paternal Grandfather Stroke No family history of Pulmonary Embolism Sister Thyroid Disorder Immunizations Vaccine Date Status Comments Unknown Payers Payer name Insurance type Covered democrat ID Authorization(s) [facility] CI [id number] Social History Type Description Quantity Date Captured Alcohol Use Details No Caffeine Use Details Unknown Tobacco Use Status Unknown Smoking Status Never smoker Vital Signs Date / Height Weight BMI Pulse Blood Temperature Respiratory Body Head BMI Time: Rate Pressure Rate Surface Circumference percentile Area 160.00 26.6 126/74 2017 lbs 2 mm[Hg] 4:31 kg/m PM eter (2) 4 4:26 kg/m PM eter (2) Chief Complaint And Reason For Visit Unknown Chief Complaint And Reason For Visit Reason For Referral Reason For Referral Unknown Plan Of Care Date Type Action Status Appointment Nickie Gamino BOOKED Future Order: Radiology Order Complete OB Ultrasound > 14 Ordered Weeks ([id number]) Date Type Problem Goal Intervention Status Start [...]
--- OUTSIDE RECORDS SUMMARY | 2017-10-07 06:19 | External Medical Summary | Continuity of Care Document ---
:1990 Author Organization [facility] Allergies Active Description Code Type Severity Reaction Onset Reported/ Identified Relationship Clinical to Patient Status Yes sulfamethoxa 2827 1 N/A N/A zole Yes trimethoprim 2873 1 N/A N/A Yes No Known 85698 3 N/A N/A Drug 0 Allergies Medications Medication Packaging Start Date Stop Date Route Dosage Sig Tablet 07/05/2017 FERROUS SULFATE take 1 tablet by oral route every day Problems Date Dx Coded Attending Type Code Diagnosis Diagnosed By 06/06/2017 Prerna Stephen Z34.82 Encounter for suprvsn of normal , second trimester 06/06/2017 Prerna Stephen Z3A.21 21 weeks gestation of 08/05/2017 Prerna Stephen Z34.81 Encounter for suprvsn of normal , first trimester 08/05/2017 Prerna Stephen Z3A.13 13 weeks gestation of 08/05/2017 Prerna Stephen Z34.83 Encounter for suprvsn of normal , third trimester 08/05/2017 Prerna Stephen Z3A.30 30 weeks gestation of 08/05/2017 Prerna Stephen O44.23 Partial Placenta Previa Nos Or W/out Hemorrhage, Third Trimester 08/05/2017 Prerna Stephen Z3A.30 30 weeks gestation of 09/18/2017 Prerna Stephen Z34.83 Encounter for suprvsn of normal , third trimester 09/18/2017 Prerna Stephen Z3A.36 36 weeks gestation of Procedures Code Description [place] [address] Venpnctr 04/08/2017 fngr/heel/ear stick routne 37706 OB Visit No 04/08/2017 Charge [id number] OB Panel 04/08/2017 With An HIV 96186 Cult, bactr, 04/08/2017 snehal colonycnt, urine 09838 Cult, bactr, 04/08/2017 ident isolate, urine 83725 Infct 04/08/2017 antign, chlamydia trac, ampl 59546 Neisseria 04/08/2017 Gonorrhea, Amplified DNA OBPRE OB 04/08/2017 Prepayment Agreement 22910 Ultrasnd 06/06/2017 exam of preg uterus, compl 47198 Ultrasnd 08/05/2017 exam, preg uterus, limited 85785 OB Visit No 08/05/2017 Charge [id number] OB Visit No 09/18/2017 Charge Results There is no data. Encounters ACCT No. Visit Discharge Status Pt. Type Provider Facility Loc./Unit Complaint Date/Time [id number] 10/02/2017 10/02/2017 CLS Outpatient Hailee, 11:00:00 23:59:59 Prerna L [id number] 09/26/2017 09/26/2017 CLS Outpatient Hailee, 16:15:00 23:59:59 Prerna L [id number] 09/18/2017 09/18/2017 CLS Outpatient Hailee, 13:45:00 23:59:59 Prerna L [id number] 09/04/2017 09/04/2017 CLS Outpatient Hailee, 13:30:00 23:59:59 Prerna L [id number] 08/21/2017 08/21/2017 CLS Outpatient Hailee, 16:30:00 23:59:59 Prerna L [id number] 08/05/2017 08/05/2017 CLS Outpatient Hailee, 13:35:00 23:59:59 Prerna L [id number] 08/05/2017 08/05/2017 CLS Outpatient Hailee, 13:15:00 23:59:59 Prerna L [id number] 07/05/2017 07/05/2017 CLS Outpatient Hailee, 09:46:00 23:59:59 Prerna L [id number] 07/04/2017 07/04/2017 CLS Outpatient Hailee, 13:00:00 23:59:59 Prerna L [id number] 06/06/2017 06/06/2017 CLS Outpatient Hailee, 16:15:00 23:59:59 Prerna L [id number] 06/06/2017 06/06/2017 CLS Outpatient Hailee, 15:45:00 23:59:59 Prerna L [id number] 05/08/2017 05/08/2017 CLS Outpatient [facility], 15:40:00 23:59:59 Prerna Walker [id number] 04/08/2017 04/08/2017 CLS Outpatient [facility], 15:00:00 23:59:59 Prerna Walker
[2017-10-07] MEDS ORDERED: METHYLERGONOVINE 0.2 MG/ML INJECTION IM PRN (06:22)
[2017-10-07] MEDS ORDERED: LIDOCAINE 1% (10mg/ml) 2mL INJ PF SDV ID PRN (06:22)
[2017-10-07] MEDS ORDERED: CALCIUM CARBONATE Chewable 500mg TABLET PO PRN ×2 (06:22→21:15)
[2017-10-07] MEDS ORDERED: CARBOPROST 250 MCG/ML INJECTION IM PRN (06:22)
[2017-10-07] MEDS ORDERED: OXYTOCIN DRIP 30 UNIT/500 ML ML IV PRN (06:22)
[2017-10-07] MEDS ORDERED: ACETAMINOPHEN 500 MG TABLET PO PRN ×2 (06:22→21:15)
[2017-10-07] MEDS ORDERED: D5LR 1,000 ML IV PRN (06:22)
[2017-10-07] MEDS ORDERED: MAG-AL + SIM ORAL LIQUID 30ml PO PRN ×2 (06:22→21:15)
[2017-10-07 07:20] VITALS: BMI 30.9
[2017-10-07] MEDS: LR 1,000 ML IV PRN ×2 (07:52→11:11)
[2017-10-07] MEDS ORDERED: IBUPROFEN 800 MG TABLET PO PRN ×2 (17:04→21:15)
[2017-10-07] MEDS ORDERED: RHOPHYLAC - PHARMACY CONSULT MC ONE (21:15)
[2017-10-07] MEDS ORDERED: OXYTOCIN DRIP 30 UNIT/500 ML ML IV SCH (21:15)
[2017-10-07] MEDS ORDERED: HYDROCORTISONE 2.5% CREAM 30gm RECTALLY PRN (21:15)
[2017-10-07] MEDS ORDERED: HYDROCODONE/APAP 5mg/325mg TABLET PO PRN (21:15)
[2017-10-07] MEDS ORDERED: DiphenhydrAMINE 25 MG CAPSULE PO PRN (21:15)
[2017-10-07 23:56] VITALS: RESP 16
--- NOTE | 2017-10-08 07:35 | Labor and Delivery Note ---
DATE OF DELIVERY 10/07/2017 DELIVERY NOTE Ms. Gamino progressed well in first stage of labor. She began to push with excellent effort at the complete and +2 position. She pushed for a few moments delivering the head in the OA presentation. Baby was bulb suctioned on the perineum. Initially I did not detect a cord, but it soon became evident that there was a tight nuchal cord x 1. I could not reduce this over the baby' s head, so I doubly clamped it and cut it. With two further pushes the baby delivered in total. Shoulders were snug but not a true shoulder dystocia. Baby was then placed on mother's abdomen for care by the nurses. This is a liveborn male with Apgars of 8/9/9. He weighed 8 pounds, 10.6 ounces. After a few moments the placenta delivered spontaneously, intact. It had a normal configuration and a normal-appearing three-vessel cord. Cord blood was obtained for Rh. There was a superficial right introitus tear that was hemostatic and was not repaired. After I left the patient began to bleed a little more copiously and was given IM Methergine. Total blood loss was approximately 400 ml. At the time of this dictation mother and baby are doing well. [facility]
--- NOTE | 2017-10-08 08:10 | OB/GYN Progress Note ---
OB-PP Progress Note - General PPD1 Maternal Group B Strep: Negative Maternal Rubella Status: Immune - Subjective Date: 10/08/17 Lochia: Moderate Pain: controlled Voiding: voiding Nausea or Vomiting Present: No - Objective Vital Signs: Last Vital Signs Temp 97.9 F 10/08/17 07:00 Pulse 66 10/08/17 07:00 Resp 16 10/08/17 07:00 BP 123/56 10/08/17 07:00 Pulse Ox 97 10/07/17 23:47 Urine Output: good General: alert and oriented Abdomen: fundus firm Extremities: non-tender Laboratory: Laboratory Results - last 24 hr 10/07/17 10/07/17 06:45 21:15 Blood Type B Negative Antibody Screen Positive A* Antibody Identification Immune D RhIG Candidate? Is a candidate - Assessment Assessment: - Plan Plan: routine care, discharge home (Ibuprofen 800mg #50 sent home. )
[2017-10-08] MEDS ORDERED: DOCUSATE CALCIUM 240 MG CAPSULE PO SCH (09:00)
[2017-10-08] MEDS ORDERED: RHO(D) IMMUNE GLOBULIN 300 MCG/2 ML INJECTION IVP ONE (09:41)
--- NOTE | 2017-10-08 10:24 | Pharmacy Consult ---
Pharmacy Consult-Rhophylac - Laboratory Information 10/07/17 10/07/17 10/08/17 06:45 21:15 05:58 Hgb /Adult Ratio 0.0000 Blood Type B Negative RhIG Candidate? Is a candidate - Consult Information Rh FACTOR CONSULT: Mother Blood Type = B negative Child Blood Type = O positive Hgb / Adult Ratio = 0.0000 Will give Rho D Immunoglobulin 300mcg IV x 1 dose. Thank you, Trisha Reddy [facility]
[2017-10-08 16:42] VITALS: BP 112/65; PULSE 68; TEMP 97.8; O2SAT 99
== END 2017-10-08 18:50 | disposition home or self-care (01) | DRG 774 ==
LOC: MC 06:14
PROVIDERS: ADMIT Obstetrics & Gynecology; ATTEND Obstetrics & Gynecology